=== PATIENT | female | born 1960 | race Caucasian/White ===

== ENCOUNTER 2017-06-30 21:52 | Emergency (ER) | payer OTHER ==
[~2017-06-30] VITALS: Ht 157.5 cm; Wt 90.7 kg
[2017-06-30 23:02] VITALS: Ht 157.5 cm; Wt 90.7 kg
[2017-06-30 23:24] VITALS: BP 140/77
== END 2017-07-01 00:28 | disposition home or self-care (01) ==
LOC: ED 21:52
DX: J45.901 Unspecified asthma with (acute) exacerbation (principal); I10 Essential (primary) hypertension; Z90.49 Acquired absence of other specified parts of digestive tract; Z88.0 Allergy status to penicillin; Z79.51 Long term (current) use of inhaled steroids
CPT/HCPCS: J7512; J7613; J7644

== ENCOUNTER 2017-09-26 06:50 | Emergency (ER) | payer OTHER ==
[~2017-09-26] VITALS: Ht 165.1 cm; Wt 118.0 kg
[2017-09-26 06:55] VITALS: Ht 165.1 cm; Wt 118.0 kg
[2017-09-26 09:51] VITALS: BP 148/91
== END 2017-09-26 09:51 | disposition home or self-care (01) ==
LOC: ED 06:50
DX: K59.00 Constipation, unspecified (principal); M54.32 Sciatica, left side; I10 Essential (primary) hypertension; J45.909 Unspecified asthma, uncomplicated; Z88.0 Allergy status to penicillin
CPT/HCPCS: J1885; J2270; Q0162

== ENCOUNTER 2017-10-11 17:33 | Inpatient (IN) | payer OTHER ==
[~2017-10-11] VITALS: Ht 152.4 cm; Wt 118.9 kg
[2017-10-11 17:38] VITALS: Ht 152.4 cm; Wt 118.9 kg
[2017-10-11 17:55] LABS: microscopic required? NO
[2017-10-11 18:14] LABS: BASOPHIL % 0.7 % (0-2); PLATELET COUNT 307 x10^3mcL (130-400); RED CELL DISTRIBUTION WIDTH 14.3 % (11.5-14.5)
[2017-10-11 18:15] LABS: urine erythrocyte NEGATIVE (NEGATIVE)
[2017-10-11 18:22] LABS: CALCIUM 8.9 mg/dL (8.5-10.1); CARBON DIOXIDE 28.8 mmol/L (21-32); CHLORIDE SERUM 103 mmol/L (98-107); CREATININE SERUM 0.6 mg/dL (0.6-1.0); GFR1 > 60 mL/min; GLUCOSE SERUM 150 mg/dL (74-106); POTASSIUM SERUM 3.6 mmol/L (3.5-5.1); SODIUM SERUM 138 mmol/L (136-145)
[2017-10-11 18:28] LABS: ALKALINE PHOSPHATASE 127 U/L (46-116); ALT/SGPT 19 U/L (14-59); AST/SGOT 16 U/L (15-37); LIPASE 71 IU/L (73-393); TOTAL PROTEIN, SERUM 7.1 g/dL (6.4-8.2)
[2017-10-11 18:29] LABS: ALBUMIN 3.2 g/dL (3.4-5.0)
[2017-10-11 20:34] LABS: CHOLESTEROL/HDL RATIO 3.9; MAGNESIUM 2.2 mg/dL (1.8-2.4); PHOSPHOROUS 3.3 mg/dL (2.5-4.9)
[2017-10-11 20:36] LABS: AMPHETAMINE QUAL UR NONE DETECTED (NEG <=1000)
[2017-10-11 20:42] LABS: T3 TOTAL 1.46 ng/mL
[2017-10-11 20:44] LABS: FREE T4 1.17 ng/dL (0.76-1.46); FREE THYROXINE INDEX 2.9 ug/dL (1.4-4.5); T4(THYROXINE) 9.2 ug/dL (4.7-13.3)
[2017-10-11] MEDS ORDERED: CARDIZEM CD240 MG PO (21:16)
[2017-10-11] MEDS ORDERED: COZAAR100 MG PO (21:16)
[2017-10-11] MEDS ORDERED: GABAPENTIN600 M1 PO (21:17)
[2017-10-11] MEDS ORDERED: TRAMADOL HCL50 MG PO (21:17)
[2017-10-11 21:46] VITALS: BP 155/65
[2017-10-12 05:49] LABS: BASOPHIL % 0.8 % (0-2); PLATELET COUNT 292 x10^3mcL (130-400); RED CELL DISTRIBUTION WIDTH 14.4 % (11.5-14.5)
[2017-10-12 05:55] VITALS: BP 125/68
[2017-10-12 06:17] LABS: CALCIUM 8.8 mg/dL (8.5-10.1); CARBON DIOXIDE 31.4 mmol/L (21-32); CHLORIDE SERUM 105 mmol/L (98-107); CREATININE SERUM 0.6 mg/dL (0.6-1.0); GFR1 > 60 mL/min; GLUCOSE SERUM 98 mg/dL (74-106); POTASSIUM SERUM 4.1 mmol/L (3.5-5.1); SODIUM SERUM 141 mmol/L (136-145)
[2017-10-12 09:28] VITALS: BP 154/54
[2017-10-12 13:08] VITALS: BP 133/63
[2017-10-12] MEDS ORDERED: ROB750 PO (15:04)
[2017-10-12 15:15] VITALS: BP 133/63
== END 2017-10-12 16:35 | disposition home or self-care (01) | DRG 347 ==
LOC: ED 17:33 → DU 20:15
PROVIDERS: Emergency Medicine; Family Medicine
DX: M54.30 Sciatica, unspecified side (principal); N17.0 Acute kidney failure with tubular necrosis; E11.65 Type 2 diabetes mellitus with hyperglycemia; I10 Essential (primary) hypertension; Z88.0 Allergy status to penicillin; J45.909 Unspecified asthma, uncomplicated; Z90.49 Acquired absence of other specified parts of digestive tract; E66.01 Morbid (severe) obesity due to excess calories; Z68.43 Body mass index [BMI] 50.0-59.9, adult; E78.5 Hyperlipidemia, unspecified; E44.0 Moderate protein-calorie malnutrition
CPT/HCPCS: 82962; 83880; 84439; 97530-GP; J1100; J1644; J1885; J1956; J2405; J3010; J7030; Q0092

== ENCOUNTER 2017-11-18 20:31 | Emergency (ER) | payer OTHER ==
[~2017-11-18] VITALS: Ht 160 cm; Wt 124.7 kg
[~2017-11-18 20:31] MED LIST: CARDIZEM CD240 MG PO; COZAAR100 MG PO; GABAPENTIN600 M1 PO; ROB750 PO; TRAMADOL HCL50 MG PO
[2017-11-18 20:45] VITALS: Ht 160 cm; Wt 124.7 kg
[2017-11-18 21:50] LABS: BASOPHIL % 0.6 % (0-2); PLATELET COUNT 390 x10^3mcL (130-400)
[2017-11-18 21:57] LABS: CALCIUM 8.8 mg/dL (8.5-10.1); CARBON DIOXIDE 25.8 mmol/L (21-32); CREATININE SERUM 1.1 mg/dL (0.6-1.0); POTASSIUM SERUM 3.8 mmol/L (3.5-5.1)
[2017-11-18 22:02] LABS: BILIRUBIN TOTAL 0.2 mg/dL (0.20-1.00); TOTAL PROTEIN, SERUM 7.3 g/dL (6.4-8.2)
[2017-11-19 02:02] VITALS: BP 152/67
== END 2017-11-19 02:02 | disposition home or self-care (01) ==
LOC: ED 20:31
PROVIDERS: Emergency Medicine
DX: K46.9 Unspecified abdominal hernia without obstruction or gangrene (principal); M54.42 Lumbago with sciatica, left side; I10 Essential (primary) hypertension; J45.909 Unspecified asthma, uncomplicated; Z88.0 Allergy status to penicillin
CPT/HCPCS: J1885; J2270; J2405; J7030

== ENCOUNTER 2017-11-20 04:06 | Emergency (ER) | payer OTHER ==
[~2017-11-20] VITALS: Ht 160 cm; Wt 126.5 kg
[2017-11-20 04:11] VITALS: Ht 160 cm; Wt 126.5 kg
[2017-11-20 06:32] VITALS: BP 135/58
== END 2017-11-20 06:32 | disposition home or self-care (01) ==
LOC: ED 04:06
DX: M54.42 Lumbago with sciatica, left side (principal); E66.01 Morbid (severe) obesity due to excess calories; I10 Essential (primary) hypertension; Z88.0 Allergy status to penicillin
CPT/HCPCS: J2270; Q0162

== ENCOUNTER 2018-02-10 20:21 | Emergency (ER) | payer OTHER ==
[~2018-02-10] VITALS: Ht 152.4 cm; Wt 111.6 kg
[2018-02-10 20:28] VITALS: Ht 152.4 cm; Wt 111.6 kg
[2018-02-10 23:12] VITALS: BP 138/63
== END 2018-02-10 23:12 | disposition home or self-care (01) ==
LOC: ED 20:21
DX: F41.9 Anxiety disorder, unspecified (principal); R11.0 Nausea; I10 Essential (primary) hypertension; Z88.0 Allergy status to penicillin
CPT/HCPCS: Q0162

== ENCOUNTER 2018-05-08 07:29 | Inpatient (IN) | payer OTHER ==
[~2018-05-08] VITALS: Ht 152.4 cm; Wt 109.1 kg
[2018-05-08 07:35] VITALS: Ht 152.4 cm; Wt 109.1 kg
[2018-05-08 08:23] LABS: BASOPHIL % 0.8 % (0-2); PLATELET COUNT 361 x10^3mcL (130-400); RED CELL DISTRIBUTION WIDTH 14.5 % (11.5-14.5)
[2018-05-08 08:33] LABS: CALCIUM 8.9 mg/dL (8.5-10.1); CHLORIDE SERUM 102 mmol/L (98-107); CREATININE SERUM 0.8 mg/dL (0.6-1.0); GFR1 > 60 mL/min; GLUCOSE SERUM 104 mg/dL (74-106); POTASSIUM SERUM 3.8 mmol/L (3.5-5.1); SODIUM SERUM 137 mmol/L (136-145)
[2018-05-08 08:38] LABS: ALBUMIN 3.4 g/dL (3.4-5.0); ALKALINE PHOSPHATASE 190 U/L (46-116); ALT/SGPT 22 U/L (14-59); AST/SGOT 14 U/L (15-37); BILIRUBIN TOTAL 0.3 mg/dL (0.20-1.00); LIPASE 141 IU/L (73-393); TOTAL PROTEIN, SERUM 8.1 g/dL (6.4-8.2)
[2018-05-08 08:50] LABS: microscopic required? NO
[2018-05-08 09:09] LABS: urine erythrocyte NEGATIVE (NEGATIVE)
[2018-05-08] MEDS ORDERED: GOOD SENSE OMEP20 MG PO (09:33)
[2018-05-08] MEDS ORDERED: AMITRIPTYLINE H25 MG PO (09:34)
[2018-05-08] MEDS ORDERED: GOOD SENSE ASPI81 M3 PO (09:35)
[2018-05-08 11:35] LABS: MAGNESIUM 2.1 mg/dL (1.8-2.4); PHOSPHOROUS 3.5 mg/dL (2.5-4.9)
[2018-05-08 11:36] LABS: CHOLESTEROL/HDL RATIO 4.4
[2018-05-08 11:43] LABS: AMPHETAMINE QUAL UR NONE DETECTED (See below)
[2018-05-08 11:59] LABS: FREE T4 1.11 ng/dL (0.76-1.46); FREE THYROXINE INDEX 3.3 ug/dL (1.4-4.5); T4(THYROXINE) 10.4 ug/dL (4.7-13.3)
[2018-05-08 13:39] VITALS: BP 148/80
[2018-05-08 13:44] VITALS: BP 122/48
[2018-05-08 14:04] VITALS: BP 122/75
[2018-05-08 21:39] VITALS: BP 124/44
[2018-05-09 04:53] VITALS: BP 116/53
[2018-05-09 08:47] VITALS: BP 161/80
[2018-05-09 12:07] LABS: ALKALINE PHOSPHATASE 153 U/L (46-116); ALT/SGPT 35 U/L (14-59); AST/SGOT 36 U/L (15-37); BILIRUBIN TOTAL 0.34 mg/dL (0.20-1.00); CALCIUM 8.5 mg/dL (8.5-10.1); CARBON DIOXIDE 25.2 mmol/L (21-32); CHLORIDE SERUM 103 mmol/L (98-107); CREATININE SERUM 0.5 mg/dL (0.6-1.0); GFR1 > 60 mL/min; GLUCOSE SERUM 92 mg/dL (74-106); MAGNESIUM 2.6 mg/dL (1.8-2.4); PHOSPHOROUS 3.4 mg/dL (2.5-4.9); POTASSIUM SERUM 3.9 mmol/L (3.5-5.1); SODIUM SERUM 134 mmol/L (136-145); TOTAL PROTEIN, SERUM 7.4 g/dL (6.4-8.2)
[2018-05-09 12:47] LABS: BASOPHIL % 0.6 % (0-2); PLATELET COUNT 291 x10^3mcL (130-400)
[2018-05-09 14:29] VITALS: BP 161/80
[2018-05-09] MEDS ORDERED: GOOD SENSE OMEP20 MG PO (14:44)
[2018-05-09] MEDS ORDERED: CLARITHROMYCIN500 M1 PO (14:45)
[2018-05-09] MEDS ORDERED: FLA500 PO (14:48)
[2018-05-09] MEDS ORDERED: NAPROSYN500 MG PO (14:52)
[2018-05-09 16:08] VITALS: BP 118/61
== END 2018-05-09 17:48 | disposition home or self-care (01) ==
LOC: ED 07:29 → MU 10:26
PROVIDERS: Emergency Medicine; Internal Medicine
PROC: 0FC98ZZ Extirpation of Matter from Common Bile Duct, Via Natural or Artificial Opening Endoscopic (ICD-10-PCS; principal; 2018-05-09 07:30)
PROC: 0DB68ZX Excision of Stomach, Via Natural or Artificial Opening Endoscopic, Diagnostic (ICD-10-PCS; 2018-05-09 07:30)
DX: K80.50 Calculus of bile duct without cholangitis or cholecystitis without obstruction (principal); E66.01 Morbid (severe) obesity due to excess calories; Z68.42 Body mass index [BMI] 45.0-49.9, adult; E11.9 Type 2 diabetes mellitus without complications; F41.9 Anxiety disorder, unspecified; I10 Essential (primary) hypertension; E78.5 Hyperlipidemia, unspecified; Z79.82 Long term (current) use of aspirin
CPT/HCPCS: 43260; 82962; 83880; 84439; 94150; C1769; J1610; J1885; J2250; J2405; J3010; J7030; J7620; Q0092; Q9967

== ENCOUNTER 2018-05-18 09:41 | Emergency (ER) | payer OTHER ==
[~2018-05-18] VITALS: Ht 152.4 cm; Wt 113.4 kg
[~2018-05-18 09:41] MED LIST changes: +AMITRIPTYLINE H25 MG PO; +CLARITHROMYCIN500 M1 PO; +FLA500 PO; +GOOD SENSE ASPI81 M3 PO; +GOOD SENSE OMEP20 MG PO; +NAPROSYN500 MG PO
[2018-05-18 09:45] VITALS: Ht 152.4 cm; Wt 113.4 kg
[2018-05-18 10:17] LABS: microscopic required? NO
[2018-05-18 10:27] LABS: urine erythrocyte NEGATIVE (NEGATIVE)
[2018-05-18 10:33] LABS: BASOPHIL % 0.4 % (0-2); PLATELET COUNT 322 x10^3mcL (130-400)
[2018-05-18 10:38] LABS: RED CELL DISTRIBUTION WIDTH 14.9 % (11.5-14.5)
[2018-05-18 10:47] LABS: CALCIUM 9.3 mg/dL (8.5-10.1); CARBON DIOXIDE 26.9 mmol/L (21-32); CHLORIDE SERUM 102 mmol/L (98-107); CREATININE SERUM 0.6 mg/dL (0.6-1.0); GFR1 > 60 mL/min; GLUCOSE SERUM 99 mg/dL (74-106); POTASSIUM SERUM 3.8 mmol/L (3.5-5.1); SODIUM SERUM 137 mmol/L (136-145)
[2018-05-18 10:52] LABS: ALBUMIN 3.4 g/dL (3.4-5.0); ALKALINE PHOSPHATASE 154 U/L (46-116); ALT/SGPT 26 U/L (14-59); AST/SGOT 21 U/L (15-37); BILIRUBIN TOTAL 0.4 mg/dL (0.20-1.00); TOTAL PROTEIN, SERUM 7.8 g/dL (6.4-8.2)
[2018-05-18 11:53] VITALS: BP 147/82
== END 2018-05-18 11:53 | disposition home or self-care (01) ==
LOC: ED 09:41
PROVIDERS: Emergency Medicine
DX: R10.11 Right upper quadrant pain (principal); R10.31 Right lower quadrant pain; E66.01 Morbid (severe) obesity due to excess calories; J45.909 Unspecified asthma, uncomplicated; I10 Essential (primary) hypertension; Z88.0 Allergy status to penicillin; Z68.30 Body mass index [BMI] 30.0-30.9, adult
CPT/HCPCS: J1885; J2405; J3010; J7030; Q0092

== ENCOUNTER 2018-06-02 18:30 | Emergency (ER) | payer OTHER ==
[~2018-06-02] VITALS: Ht 149.9 cm; Wt 112.5 kg
[2018-06-02 18:58] LABS: microscopic required? YES; urine erythrocyte NEGATIVE (NEGATIVE)
[2018-06-02 21:24] LABS: BASOPHIL % 1.6 % (0-2); PLATELET COUNT 341 x10^3mcL (130-400); RED CELL DISTRIBUTION WIDTH 15.1 % (11.5-14.5)
[2018-06-02 21:37] LABS: CALCIUM 9.2 mg/dL (8.5-10.1); CARBON DIOXIDE 24.2 mmol/L (21-32); CHLORIDE SERUM 103 mmol/L (98-107); GFR1 > 60 mL/min; GLUCOSE SERUM 107 mg/dL (74-106); POTASSIUM SERUM 3.3 mmol/L (3.5-5.1); SODIUM SERUM 139 mmol/L (136-145)
[2018-06-02 21:41] LABS: ALBUMIN 3.5 g/dL (3.4-5.0); ALKALINE PHOSPHATASE 158 U/L (46-116); ALT/SGPT 32 U/L (14-59); AST/SGOT 17 U/L (15-37); BILIRUBIN TOTAL 0.4 mg/dL (0.20-1.00); LIPASE 111 IU/L (73-393); TOTAL PROTEIN, SERUM 7.9 g/dL (6.4-8.2)
[2018-06-02 23:15] VITALS: BP 142/81
== END 2018-06-02 23:15 | disposition home or self-care (01) ==
LOC: ED 18:30
PROVIDERS: Emergency Medicine
DX: N12 Tubulo-interstitial nephritis, not specified as acute or chronic (principal); Z90.49 Acquired absence of other specified parts of digestive tract; Z88.0 Allergy status to penicillin
CPT/HCPCS: J1885; J2765; J3010; Q0162

== ENCOUNTER 2018-06-03 05:38 | Emergency (ER) | payer OTHER ==
[~2018-06-03] VITALS: Ht 152.4 cm; Wt 112.5 kg
[2018-06-03 05:41] VITALS: Ht 152.4 cm; Wt 112.5 kg
[2018-06-03 08:01] VITALS: BP 135/59
== END 2018-06-03 08:02 | disposition home or self-care (01) ==
LOC: ED 05:38
DX: T45.0X5A Adverse effect of antiallergic and antiemetic drugs, initial encounter (principal); N12 Tubulo-interstitial nephritis, not specified as acute or chronic; E66.9 Obesity, unspecified; J45.909 Unspecified asthma, uncomplicated; I10 Essential (primary) hypertension; M54.30 Sciatica, unspecified side; Z88.8 Allergy status to other drugs, medicaments and biological substances; Z68.41 Body mass index [BMI] 40.0-44.9, adult; Z88.0 Allergy status to penicillin; Y92.89 Other specified places as the place of occurrence of the external cause
CPT/HCPCS: J1200; J2060

== ENCOUNTER 2018-06-09 03:27 | Emergency (ER) | payer OTHER ==
[~2018-06-09] VITALS: Ht 165.1 cm; Wt 112.5 kg
[2018-06-09 03:33] VITALS: Ht 165.1 cm; Wt 112.5 kg
[2018-06-09 04:08] LABS: BASOPHIL % 1.3 % (0-2); PLATELET COUNT 342 x10^3mcL (130-400)
[2018-06-09 04:20] LABS: CALCIUM 9.1 mg/dL (8.5-10.1); CARBON DIOXIDE 29.2 mmol/L (21-32); CHLORIDE SERUM 103 mmol/L (98-107); CREATININE SERUM 0.8 mg/dL (0.6-1.0); GFR1 > 60 mL/min; GLUCOSE SERUM 111 mg/dL (74-106); POTASSIUM SERUM 3.8 mmol/L (3.5-5.1); SODIUM SERUM 138 mmol/L (136-145)
[2018-06-09 04:24] LABS: ALBUMIN 3.6 g/dL (3.4-5.0); ALKALINE PHOSPHATASE 153 U/L (46-116); ALT/SGPT 20 U/L (14-59); AST/SGOT 17 U/L (15-37); LIPASE 136 IU/L (73-393); TOTAL PROTEIN, SERUM 7.7 g/dL (6.4-8.2)
[2018-06-09 06:53] VITALS: BP 133/61
== END 2018-06-09 08:40 | disposition home or self-care (01) ==
LOC: ED 03:27
PROVIDERS: Emergency Medicine
DX: K27.9 Peptic ulcer, site unspecified, unspecified as acute or chronic, without hemorrhage or perforation (principal); J45.909 Unspecified asthma, uncomplicated; I10 Essential (primary) hypertension; M54.30 Sciatica, unspecified side; Z88.0 Allergy status to penicillin; Z88.8 Allergy status to other drugs, medicaments and biological substances
CPT/HCPCS: J1200; J2270; Q0092; Q0162

== ENCOUNTER 2018-10-25 20:02 | Emergency (ER) | payer OTHER ==
[~2018-10-25] VITALS: Ht 152.4 cm; Wt 106.6 kg
[2018-10-25 20:07] VITALS: Ht 152.4 cm; Wt 106.6 kg
[2018-10-25 20:43] LABS: PLATELET COUNT 322 x10^3mcL (130-400); RED CELL DISTRIBUTION WIDTH 14.4 % (11.5-14.5)
[2018-10-25 20:50] LABS: CALCIUM 8.9 mg/dL (8.5-10.1); CARBON DIOXIDE 27.9 mmol/L (21-32); CHLORIDE SERUM 103 mmol/L (98-107); CREATININE SERUM 0.8 mg/dL (0.6-1.0); GFR1 > 60 mL/min; GLUCOSE SERUM 104 mg/dL (74-106); POTASSIUM SERUM 3.6 mmol/L (3.5-5.1); SODIUM SERUM 141 mmol/L (136-145)
[2018-10-25 20:54] LABS: ALBUMIN 3.6 g/dL (3.4-5.0); ALKALINE PHOSPHATASE 156 U/L (46-116); ALT/SGPT 20 U/L (14-59); AMYLASE 31 U/L (25-115); AST/SGOT 16 U/L (15-37); BILIRUBIN TOTAL 0.37 mg/dL (0.20-1.00); LIPASE 101 IU/L (73-393); TOTAL PROTEIN, SERUM 7.6 g/dL (6.4-8.2)
[2018-10-25 23:23] VITALS: BP 160/80
== END 2018-10-25 23:23 | disposition home or self-care (01) ==
LOC: ED 20:02
PROVIDERS: Emergency Medicine
DX: K59.00 Constipation, unspecified (principal); J45.909 Unspecified asthma, uncomplicated; I10 Essential (primary) hypertension; M54.30 Sciatica, unspecified side; Z88.0 Allergy status to penicillin; Z88.8 Allergy status to other drugs, medicaments and biological substances
CPT/HCPCS: 36415; J3010

== ENCOUNTER 2018-11-24 13:57 | Emergency (ER) | payer OTHER ==
[~2018-11-24] VITALS: Ht 152.4 cm; Wt 111.2 kg
[2018-11-24 14:03] VITALS: Ht 152.4 cm; Wt 111.2 kg
[2018-11-24 17:56] LABS: CALCIUM 9.1 mg/dL (8.5-10.1); CARBON DIOXIDE 30.5 mmol/L (21-32); CHLORIDE SERUM 103 mmol/L (98-107); CREATININE SERUM 0.7 mg/dL (0.6-1.0); GFR1 > 60 mL/min; GLUCOSE SERUM 116 mg/dL (74-106); POTASSIUM SERUM 3.6 mmol/L (3.5-5.1); SODIUM SERUM 140 mmol/L (136-145)
[2018-11-24 18:02] LABS: ALBUMIN 3.4 g/dL (3.4-5.0); ALKALINE PHOSPHATASE 164 U/L (46-116); ALT/SGPT 23 U/L (14-59); AMYLASE 33 U/L (25-115); AST/SGOT 13 U/L (15-37); BASOPHIL % 0.7 % (0-2); BILIRUBIN TOTAL 0.3 mg/dL (0.20-1.00); LIPASE 102 IU/L (73-393); PLATELET COUNT 270 x10^3mcL (130-400); RED CELL DISTRIBUTION WIDTH 13.1 % (11.5-14.5); TOTAL PROTEIN, SERUM 7.7 g/dL (6.4-8.2)
[2018-11-24 18:56] LABS: microscopic required? NO
[2018-11-24 19:05] LABS: UA SPECIFIC GRAVITY <=1.005 (1.005-1.035); urine erythrocyte NEGATIVE (NEGATIVE)
[2018-11-24 19:57] VITALS: BP 132/74
== END 2018-11-24 19:57 | disposition home or self-care (01) ==
LOC: ED 13:57
PROVIDERS: Emergency Medicine
DX: R10.11 Right upper quadrant pain (principal); R11.0 Nausea; J45.909 Unspecified asthma, uncomplicated; I10 Essential (primary) hypertension; E11.9 Type 2 diabetes mellitus without complications; Z88.0 Allergy status to penicillin; Z88.8 Allergy status to other drugs, medicaments and biological substances
CPT/HCPCS: J2270; J2405; J7030; Q0092

== ENCOUNTER 2019-03-30 13:36 | Emergency (ER) | payer OTHER ==
[~2019-03-30] VITALS: Ht 162.6 cm; Wt 110.2 kg
[2019-03-30 13:45] VITALS: Ht 162.6 cm; Wt 110.2 kg
[2019-03-30 15:11] LABS: CARBON DIOXIDE 29.3 mmol/L (21-32); CHLORIDE SERUM 102 mmol/L (98-107); GFR1 > 60 mL/min; GLUCOSE SERUM 122 mg/dL (74-106); POTASSIUM SERUM 3.8 mmol/L (3.5-5.1); SODIUM SERUM 140 mmol/L (136-145)
[2019-03-30 15:13] LABS: BASOPHIL % 0.8 % (0-2); PLATELET COUNT 338 x10^3mcL (130-400); RED CELL DISTRIBUTION WIDTH 14.8 % (11.5-14.5)
[2019-03-30 15:15] LABS: ALBUMIN 3.5 g/dL (3.4-5.0); ALKALINE PHOSPHATASE 151 U/L (46-116); ALT/SGPT 20 U/L (14-59); AST/SGOT 16 U/L (15-37); BILIRUBIN TOTAL 0.3 mg/dL (0.20-1.00); LIPASE 63 IU/L (73-393); TOTAL PROTEIN, SERUM 8.1 g/dL (6.4-8.2)
[2019-03-30 15:34] LABS: UA SPECIFIC GRAVITY <=1.005 (1.005-1.035); microscopic required? YES; urine erythrocyte NEGATIVE (NEGATIVE)
[2019-03-30 20:38] VITALS: BP 143/63
== END 2019-03-30 20:38 | disposition home or self-care (01) ==
LOC: ED 13:36
PROVIDERS: Emergency Medicine
DX: N39.0 Urinary tract infection, site not specified (principal); I10 Essential (primary) hypertension; E11.9 Type 2 diabetes mellitus without complications; K80.50 Calculus of bile duct without cholangitis or cholecystitis without obstruction; Z88.0 Allergy status to penicillin; Z88.8 Allergy status to other drugs, medicaments and biological substances
CPT/HCPCS: J0696; J2270; J3490; Q9967

== ENCOUNTER 2019-03-31 21:18 | Emergency (ER) | payer OTHER ==
[~2019-03-31] VITALS: Ht 152.4 cm; Wt 109.3 kg
[2019-03-31 21:22] VITALS: Ht 152.4 cm; Wt 109.3 kg
[2019-03-31 22:39] LABS: BASOPHIL % 1.2 % (0-2); PLATELET COUNT 363 x10^3mcL (130-400)
[2019-03-31 22:44] LABS: RED CELL DISTRIBUTION WIDTH 14.6 % (11.5-14.5)
[2019-03-31 23:30] LABS: CALCIUM 8.7 mg/dL (8.5-10.1); CARBON DIOXIDE 24.6 mmol/L (21-32); CHLORIDE SERUM 103 mmol/L (98-107); CREATININE SERUM 0.9 mg/dL (0.6-1.0); GFR1 > 60 mL/min; GLUCOSE SERUM 112 mg/dL (74-106); POTASSIUM SERUM 3.5 mmol/L (3.5-5.1); SODIUM SERUM 138 mmol/L (136-145)
[2019-03-31 23:35] LABS: ALBUMIN 3.4 g/dL (3.4-5.0); ALKALINE PHOSPHATASE 148 U/L (46-116); ALT/SGPT 16 U/L (14-59); AST/SGOT 17 U/L (15-37); BILIRUBIN TOTAL 0.2 mg/dL (0.20-1.00); TOTAL PROTEIN, SERUM 7.6 g/dL (6.4-8.2)
[2019-04-01 00:27] VITALS: BP 134/72
== END 2019-04-01 00:27 | disposition home or self-care (01) ==
LOC: ED 21:18
PROVIDERS: Emergency Medicine
DX: N39.0 Urinary tract infection, site not specified (principal); N76.0 Acute vaginitis; J45.909 Unspecified asthma, uncomplicated; I10 Essential (primary) hypertension; E11.9 Type 2 diabetes mellitus without complications; Z88.0 Allergy status to penicillin; Z88.8 Allergy status to other drugs, medicaments and biological substances
CPT/HCPCS: 36415; J1885

== ENCOUNTER 2019-10-15 09:20 | Emergency (ER) | payer OTHER ==
[~2019-10-15] VITALS: Ht 152.4 cm; Wt 106.1 kg
[2019-10-15 09:33] VITALS: Ht 152.4 cm; Wt 106.1 kg
[2019-10-15 10:29] LABS: CALCIUM 9.6 mg/dL (8.5-10.1); CARBON DIOXIDE 30.7 mmol/L (21-32); CHLORIDE SERUM 103 mmol/L (98-107); CREATININE SERUM 0.7 mg/dL (0.6-1.0); GFR1 > 60 mL/min; GLUCOSE SERUM 113 mg/dL (74-106); POTASSIUM SERUM 3.9 mmol/L (3.5-5.1); SODIUM SERUM 141 mmol/L (136-145)
[2019-10-15 10:33] LABS: ALKALINE PHOSPHATASE 131 U/L (46-116); ALT/SGPT 21 U/L (14-59); AMYLASE 35 U/L (25-115); AST/SGOT 14 U/L (15-37); BILIRUBIN TOTAL 0.4 mg/dL (0.20-1.00); LIPASE 99 IU/L (73-393); TOTAL PROTEIN, SERUM 7.6 g/dL (6.4-8.2)
[2019-10-15 10:34] LABS: ALBUMIN 3.3 g/dL (3.4-5.0)
[2019-10-15 11:08] LABS: BASOPHIL % 0.6 % (0-2); PLATELET COUNT 294 x10^3mcL (130-400)
[2019-10-15 12:08] VITALS: BP 154/70
== END 2019-10-15 12:08 | disposition home or self-care (01) ==
LOC: ED 09:20
PROVIDERS: Emergency Medicine
DX: R10.9 Unspecified abdominal pain (principal); I10 Essential (primary) hypertension; E11.9 Type 2 diabetes mellitus without complications; Z88.0 Allergy status to penicillin; Z88.8 Allergy status to other drugs, medicaments and biological substances
CPT/HCPCS: 36415; J1885

== ENCOUNTER 2020-02-29 06:55 | Emergency (ER) | payer OTHER ==
[~2020-02-29] VITALS: Ht 152.4 cm; Wt 108.0 kg
[2020-02-29 07:01] VITALS: Ht 152.4 cm; Wt 108.0 kg
[2020-02-29 09:40] VITALS: BP 132/76
== END 2020-02-29 09:35 | disposition home or self-care (01) ==
LOC: ED 06:55
DX: F41.9 Anxiety disorder, unspecified (principal); A75.3 Typhus fever due to Rickettsia tsutsugamushi; K08.89 Other specified disorders of teeth and supporting structures; I10 Essential (primary) hypertension; E11.9 Type 2 diabetes mellitus without complications; J45.909 Unspecified asthma, uncomplicated; K80.50 Calculus of bile duct without cholangitis or cholecystitis without obstruction; Z88.0 Allergy status to penicillin; Z88.8 Allergy status to other drugs, medicaments and biological substances
CPT/HCPCS: 82962; J1200; Q0163

== ENCOUNTER 2020-02-29 13:39 | Emergency (ER) | payer OTHER ==
[~2020-02-29] VITALS: Ht 152.4 cm; Wt 106.6 kg
[2020-02-29 14:53] VITALS: Ht 152.4 cm; Wt 106.6 kg
[2020-02-29 16:54] LABS: CARBON DIOXIDE 28.9 mmol/L (21-32); CHLORIDE SERUM 104 mmol/L (98-107); CREATININE SERUM 0.8 mg/dL (0.6-1.0); GFR1 > 60 mL/min; GLUCOSE SERUM 95 mg/dL (74-106); POTASSIUM SERUM 3.7 mmol/L (3.5-5.1); SODIUM SERUM 141 mmol/L (136-145)
[2020-02-29 17:00] LABS: ALKALINE PHOSPHATASE 136 U/L (46-116); ALT/SGPT 19 U/L (14-59); AST/SGOT 13 U/L (15-37); BILIRUBIN TOTAL 0.2 mg/dL (0.20-1.00); TOTAL PROTEIN, SERUM 7.6 g/dL (6.4-8.2)
[2020-02-29 17:03] LABS: ALBUMIN 3.3 g/dL (3.4-5.0)
[2020-02-29 17:12] LABS: BASOPHIL % 0.8 % (0-2); PLATELET COUNT 229 x10^3mcL (130-400); RED CELL DISTRIBUTION WIDTH 13.8 % (11.5-14.5)
[2020-02-29 18:12] VITALS: BP 133/82
== END 2020-02-29 18:05 | disposition home or self-care (01) ==
LOC: ED 13:39
PROVIDERS: Emergency Medicine
DX: R53.83 Other fatigue (principal); R53.1 Weakness; I10 Essential (primary) hypertension; E11.9 Type 2 diabetes mellitus without complications; J45.909 Unspecified asthma, uncomplicated; K80.50 Calculus of bile duct without cholangitis or cholecystitis without obstruction; M54.30 Sciatica, unspecified side; Z88.0 Allergy status to penicillin; Z88.8 Allergy status to other drugs, medicaments and biological substances

== ENCOUNTER 2020-05-02 21:57 | Emergency (ER) | payer OTHER ==
[~2020-05-02] VITALS: Ht 152.4 cm; Wt 105.7 kg
[2020-05-02 22:04] VITALS: Ht 152.4 cm; Wt 105.7 kg
[2020-05-03] VITALS: BP 142/52
== END 2020-05-02 23:57 | disposition home or self-care (01) ==
LOC: ED 21:57
DX: M25.562 Pain in left knee (principal); M19.90 Unspecified osteoarthritis, unspecified site
CPT/HCPCS: J1885; Q0092